=== PATIENT | male | born 1980 | race Caucasian/White ===

== ENCOUNTER 2023-09-06 15:42 | Emergency (ER) | payer BC ==
[~2023-09-06] VITALS: Ht 180.3 cm; Wt 76.1 kg
[2023-09-06] MEDS ORDERED: NABU-72 PO (16:35)
[2023-09-06 20:20] VITALS: BP 135/77; PULSE 68; RESP 18; TEMP 98; O2SAT 100
== END 2023-09-06 20:24 | disposition home or self-care (01) ==
LOC: ER 15:42
DX: M25.531 Pain in right wrist (principal); Z79.899 Other long term (current) drug therapy; X50.0XXA Overexertion from strenuous movement or load, initial encounter; Y93.89 Activity, other specified; Y92.89 Other specified places as the place of occurrence of the external cause; Y99.8 Other external cause status
CPT/HCPCS: 73110